=== PATIENT | female | born 1990 | race Caucasian/White ===

== ENCOUNTER → 2016-10-23 | Outpatient (REF) | payer OTHER ==
[2016-10-24 11:29] LABS: MICROSCOPIC INDICATED? NO (NO)
== END | disposition home or self-care (01) ==
LOC: M SFHCLERA 20:05
PROVIDERS: ATTEND Physician Assistant
DX: R30.0 Dysuria (principal)

== ENCOUNTER → 2016-10-31 | Outpatient (REF) | payer OTHER ==
[2016-10-31 13:48] LABS: BASO % 0.4 % (0.0-1.0); EOS # 0.3 K/mm3 (0.0-0.50); LARGE UNSTAINED CELL # 0.2 K/mm3 (0.0-0.4); LARGE UNSTAINED CELL % 2.2 % (0.0-4.0); LYMPH # 3.5 K/mm3 (1.5-6.5); LYMPH % 34.2 % (24.0-44.0); MEAN CORPUSCULAR HEMOGLOBIN 29.9 pg (27.0-33.0); MEAN CORPUSCULAR HGB CONC 32.5 g/dl (32.0-36.5); MEAN CORPUSCULAR VOLUME 92.1 fl (80.0-96.0); MONO # 0.6 K/mm3 (0.0-0.8); MONO % 6.2 % (0.0-5.0); NEUTROPHILS # 5.5 K/mm3 (1.8-7.7); PLATELET COUNT, AUTOMATED 212 k/mm3 (150-450); RED CELL DISTRIBUTION WIDTH 12.5 % (11.5-14.5); WHITE BLOOD COUNT 10.2 K/mm3 (4.0-10.0)
[2016-10-31 14:23] LABS: HCG, SERUM QUANTITATIVE 61599 MIU/ML
[2016-10-31 14:32] LABS: HBsAg Prenatal NEGATIVE (NEGATIVE)
== END | disposition home or self-care (01) ==
LOC: M LAB REF 13:02
PROVIDERS: ATTEND Advanced Practice Midwife
DX: O36.80X0 Pregnancy with inconclusive fetal viability, not applicable or unspecified (principal); Z36 Encounter for antenatal screening of mother; Z3A.00 Weeks of gestation of pregnancy not specified

== ENCOUNTER → 2016-11-07 | Outpatient (REF) | payer OTHER ==
[2016-11-07 14:21] LABS: CONTROL LINE INT CTR LINE PRESENT; HIV SCRN NEGATIVE (NEGATIVE); HIV SCRN1 NEGATIVE (NEGATIVE)
== END | disposition home or self-care (01) ==
LOC: M LAB REF 13:09
PROVIDERS: ATTEND Obstetrics & Gynecology
DX: O36.80X0 Pregnancy with inconclusive fetal viability, not applicable or unspecified (principal); Z36 Encounter for antenatal screening of mother; Z3A.00 Weeks of gestation of pregnancy not specified

== ENCOUNTER → 2016-11-27 | Outpatient (REF) | payer OTHER | LOC: M LAB REF 16:34 | PROVIDERS: ATTEND Obstetrics & Gynecology | DX: Z34.81 Encounter for supervision of other normal pregnancy, first trimester (principal); Z36 Encounter for antenatal screening of mother; Z3A.00 Weeks of gestation of pregnancy not specified ==

== ENCOUNTER → 2018-03-04 | Outpatient (CLI) | payer OTHER | LOC: M PAIN 08:30 | DX: M54.6 Pain in thoracic spine (principal); G89.29 Other chronic pain; M54.5 Low back pain; M79.1 Myalgia; G43.909 Migraine, unspecified, not intractable, without status migrainosus; F32.9 Major depressive disorder, single episode, unspecified; F41.9 Anxiety disorder, unspecified; R56.9 Unspecified convulsions; F17.210 Nicotine dependence, cigarettes, uncomplicated; Z79.899 Other long term (current) drug therapy | CPT/HCPCS: G0463 ==

== ENCOUNTER → 2018-03-19 | Outpatient (REF) ==
[2018-03-19 11:44] LABS: COLLAGEN EPINEPHRINE 154 SECONDS (74-162)
== END ==
LOC: M LAB REF 11:23
DX: N39.0 Urinary tract infection, site not specified (principal)